=== PATIENT | female | born 1995 | race Hispanic/Latino ===

== ENCOUNTER 2017-08-20 09:08 | Outpatient (CLI) | payer BC ==
--- NOTE | 2017-08-20 10:36 | RAD ---
THREE VIEWS LUMBAR SPINE: Indication: Back pain. Comparison: None. FINDINGS: There are five lumbar type vertebrae. Vertebral body heights are preserved. Spinal alignment is prese rved. IMPRESSION: No acute osseous abnormality. POS: [facility]
== END 2017-08-20 09:09 | disposition home or self-care (01) ==
LOC: RAD 09:08
PROVIDERS: ATTEND Family Medicine
DX: M54.5 Low back pain (principal)
CPT/HCPCS: 72100

== ENCOUNTER 2017-08-26 11:50 | Outpatient (CLI) | payer BC | END 2017-08-26 11:51 | disposition home or self-care (01) | LOC: BICRAD 11:50 | PROVIDERS: ATTEND Family Medicine | DX: M54.5 Low back pain (principal); M47.896 Other spondylosis, lumbar region | CPT/HCPCS: 72148 ==

== ENCOUNTER 2021-06-09 16:53 | Emergency (ER) | payer BC ==
[~2021-06-09 16:53] MED LIST: Iopamidol 370 76% 50 ML VIAL FS ONE; Iopamidol-370 76% 500 ML 1 ML ONE
[2021-06-09 17:32] LABS: #Basophils 0.2 thou/uL (0.0-0.2); #Eosinphils 0.2 thou/uL (0.0-0.7); #Lymphocytes 4.5 thou/uL (1.20-3.40); #Monocytes 1.5 thou/uL (0.11-0.59); #Neutrophils 7.4 thou/uL (1.40-6.50); %Basophils 1.2 % (0.0-1.0); %Eosinophils 1.4 % (0.0-10.0); %Lymphocytes 33.1 % (21.0-51.0); %Monocytes 10.6 % (0.0-10.0); %Neutrophils 53.7 % (42.0-75.0); Hemoglobin 15.2 g/dL (12.0-16.0); Mean Corpuscular HGB CONC 33.4 g/dL (32.0-36.0); Mean Corpuscular Hemoglobin 28.4 pg (27.0-31.0); Mean Platelet Volume 7.7 fL (7.4-10.4); Platelet Count 394 thou/uL (130-400); Red Blood Cell (RBC) Count 5.36 mill/uL (4.20-5.40); White Blood Cell (WBC) Count 13.7 thou/uL (4.8-10.8)
[2021-06-09 17:38] LABS: BHCG - Serum Negative (NEGATIVE); Pregs Control Background? CLEAR/WHITE (CLR/WHITE); Pregs Control Bar Appear? YES (CONTROL BAR)
[2021-06-09 18:08] LABS: ALT (SGPT) 18 U/L (8-55); AST (SGOT) 29 U/L (5-34); Albumin 3.8 g/dL (3.5-5.0); Alkaline Phosphatase 104 U/L (40-110); Anion Gap 16 mmol/L (10-20); BUN (Urea Nitrogen) 8 mg/dL (7.0-18.7); Bilirubin, Total 0.9 mg/dL (0.2-1.2); Calc. Creatinine Clearance 0 mL/min (70-130); Calcium 9.3 mg/dL (7.8-10.44); Carbon Dioxide 18 mmol/L (22-29); Chloride 105 mmol/L (98-107); Globulin 4.1 g/dL (2.4-3.5); Glucose 71 mg/dL (70-105); Potassium 5.1 mmol/L (3.5-5.1); Protein, Total 7.9 g/dL (6.0-8.3); Sodium 134 mmol/L (136-145)
== END 2021-06-09 23:00 | disposition home or self-care (01) ==
LOC: ERS 16:53
DX: K52.9 Noninfective gastroenteritis and colitis, unspecified (principal); K76.89 Other specified diseases of liver
CPT/HCPCS: 36415; 74177; 80053; 84703; 85025; 86140

== ENCOUNTER 2021-06-27 07:48 | Outpatient (CLI) | payer BC | END 2021-06-27 07:49 | disposition home or self-care (01) | LOC: BICULT 07:48 | PROVIDERS: ATTEND Family Medicine | DX: R10.84 Generalized abdominal pain (principal); N76.0 Acute vaginitis; K76.89 Other specified diseases of liver | CPT/HCPCS: 76700; 76856; 93976 ==

== ENCOUNTER 2021-07-02 08:17 | Outpatient (CLI) | payer BC ==
[2021-07-02] MEDS ORDERED: Magnevist 469MG/ML 20 ML VIAL ONE (10:29)
== END 2021-07-02 08:18 | disposition home or self-care (01) ==
LOC: MRI 08:17
PROVIDERS: ATTEND Internal Medicine Gastroenterology
DX: R93.3 Abnormal findings on diagnostic imaging of other parts of digestive tract (principal); I49.9 Cardiac arrhythmia, unspecified; R19.4 Change in bowel habit; D13.4 Benign neoplasm of liver
CPT/HCPCS: 74183; A9579

== ENCOUNTER 2021-10-01 09:50 | Outpatient (CLI) | payer BC | END 2021-10-01 09:51 | disposition home or self-care (01) | LOC: ULT 09:50 | PROVIDERS: ATTEND Family Medicine | DX: R19.09 Other intra-abdominal and pelvic swelling, mass and lump (principal) | CPT/HCPCS: 76999 ==

== ENCOUNTER 2024-09-21 13:19 | Outpatient (CLI) | payer BC | END 2024-09-21 13:20 | disposition home or self-care (01) | LOC: BICRAD 13:19 | PROVIDERS: ATTEND Family Medicine | DX: J20.9 Acute bronchitis, unspecified (principal) | CPT/HCPCS: 71046 ==